=== PATIENT | male | born 1985 | race Caucasian/White ===

== ENCOUNTER 2019-05-21 10:19 | Emergency (ER) | payer OTHER ==
[~2019-05-21] VITALS: Ht 190.5 cm; Wt 113.4 kg
[2019-05-21 10:44] VITALS: BP_SYST 126
[2019-05-21] MEDS ORDERED: CEPHALEXIN 500 MG CAPSULE PO ONE (10:45)
[2019-05-21] MEDS ORDERED: SULFAMETHOXAZOLE/TRIMETHOPR DS 1 TABLET PO ONE (10:45)
== END 2019-05-21 11:15 | disposition home or self-care (01) ==
LOC: SED 10:19
DX: H60.02 Abscess of left external ear (principal)
CPT/HCPCS: 99283